=== PATIENT | male | born 1975 | race Hispanic/Latino ===

== ENCOUNTER 2025-03-13 18:00 | Inpatient (IN) | payer OTHER, SELFPAY ==
[2025-03-13] VITALS (11 sets, daily range): BP systolic 104–136; BP diastolic 83–105
--- NOTE | 2025-03-13 16:17 | ED.GENMED ---
History of Present Illness
General
Chief Complaint: Chest Pain
Source: patient
Exam Limitations: none
Time Seen by Provider: 03/13/25 16:01
Nursing documentation reviewed up to this point in time: agreed with
History of Present Illness
History of Present Illness:
49-year-old male with no reported chronic medical issues presents to the ER via EMS for evaluation of chest pain�prehospital STEMI alert called based on EKG. 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 He reports substernal pressure sensation. He denies having had similar symptoms the past. He has had some mild diaphoresis/clamminess. No shortness of breath reported. He denies any known cardiac history. Per EMS on
arrival his vital signs were normal. His prehospital EKG was concerning for anterior lateral ST elevations with inferior depressions. Prehospital STEMI alert was called. He was given 324 mg of aspirin as well as 1 dose of sublingual nitroglycerin
without much improvement in his chest pain.
Review of Systems
Review of Systems
Unable to obtain full review of systems at this time due to: due to acuity
All Other Systems: Not applicable
Phy Exam
Physical Exam
Physical Exam:
General: Awake, alert, oriented x3, somewhat anxious appearing
Head: Normocephalic, atraumatic
Eyes: Conjunctiva normal
Throat: Airway intact, handling secretions
Neck: Trachea midline, no JVD noted
Lungs: Clear to auscultation bilaterally, no wheezing, rales, rhonchi
Heart: Regular rate and rhythm, no murmurs, gallops, or rubs
Neuro: Grossly intact
Skin: Somewhat clammy/diaphoretic
Extremities: No edema in extremities, equal pulses in all extremities
Scores
Heart Failure Risk
Heart Failure Risk Score: Not Applicable
Heart Score for Chest Pain Patients
STEMI patient?: Yes
Withdrawal Assessment of Alcohol
Withdrawal Assessment Completed?: Not applicable
Course
Orders/Labs/Results
Orders:
Orders
03/13/25 16:03
Electrocardiogram (*1) Urgent
Reason for Study: Chest Pain
EKG- Treatment ONCE
IV Insert/Care/Rem.- Treatment PRN
03/13/25 16:04
Complete Blood Count/With Diff Urgent
Comprehensive Metabolic Panel Urgent
Prothrombin Time Urgent
Troponin I Urgent
03/13/25 16:10
Heparin 5,000 units .ROUTE .STK-MED ONE
Ticagrelor [Brilinta] 180 mg .ROUTE .STK-MED ONE
MDM/Problems Addressed
Differential Diagnosis Includes:
STEMI, dissection
MDM/Problems Addressed:
49-year-old male presents for acute onset substernal chest pain�prehospital EKG concerning for STEMI. He received a dose of nitroglycerin prehospital as well as 324 mg of aspirin. Still having active chest pain on arrival. Prehospital STEMI alert
called and case was discussed with interventional cardiology prehospital and patient was met at bedside by myself and cardiology on arrival. Vital signs stable on arrival. His arrival EKG showed continued anterior lateral ST elevations. Patient was
given Brilinta and heparin here in the emergency room and escorted by myself up to Automatic Vulcanizing Lead Operator, care handed off to cardiology.
*Pulse Oximetry
Patient hypoxic: no (98%)
*EKG
Interpreted by ED Provider?: Yes
Heart Rate: 93
Rate: normal
Rhythm: sinus
[place]: normal axis
Interval: normal interval
QRS Pattern: normal QRS
Ischemia: ST elevation
*Critical Care Note
Total Time (30-74mins, 75-104mins- exclusive of procedures): Not Applicable
Data Reviewed
Source: patient and ambulance crew
Patient Management
Discussion with other providers: Payroll Coordinator (Discussed with interventional cardiology)
Escalation/DeEscalation of care consider admission/obs:
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
ED Attending Note
-
Portions of this chart may have been created with voice recognition software.� Occasional wrong word or��sound alike� substitutions may have occurred due to the inherent limitations of voice recognition software.
Discharge Plan
Departure
Patient Disposition: COMMUNICATIONS LEAD
Date of Disposition: 03/13/25
Time of Disposition: 16:16
Admit to doctor: Angel
Presentation/result/management discussed w/ accepting MD/DO: cardiology
Discharge Problem:
ST elevation (STEMI) myocardial infarction
Prescriptions:
No Action
No Current Medications
0
Referrals:
UNKNOWN,NO INTERVIEW [Family Provider]
Discharge Date and Time
Print Language: ARABIC
--- NOTE | 2025-03-13 16:18 | HPS.HSE ---
Family Physician
-
Family Physician: NO INTERVIEW UNKNOWN
Chief Complaint
-
Anterior STEMI
History of Present Illness
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 On arraival to ER he was given Heparin and Brilinta 180mg and brought
urgently to skilled labor, 03/09 on arrival.
Medical History
Past Medical History
Past Medical History: Reports None
Past Surgical History: Reports None
Social History
Tobacco: Non-smoker
Alcohol: Occasional
Personal: Single
Living: With Family (brother)
Family History
Family History: Not pertinent
Allergies / Home Medications
Allergies reflects when Allergies were last updated in [facility].
Home Medications with original date entered in [facility]
Allergy/Medication List:
Allergies
Allergy/AdvReac Type Severity Reaction Status Date / Time
No Known Allergies Allergy Unverified 03/13/25 16:03
�Medication �Instructions �Recorded �Confirmed �Type
No Meds [No Current Medications] 03/13/25 03/13/25 History
Review of Systems
-
Cardiac: Reports Chest Pain (03/09 on arrival to skilled labor)
Physical Exam
Physical Exam
General: Pain (deferred as pt being prepped and draped for urgent procedure)
Data Reviewed
-
Medical Tests (Nuc Med, Echo, EKG etc): Report Reviewed by me
Impression/Plan
-
IMPRESSION:
Acute Anterior STEMI
occluded LAD post PCI LAD x 1
Elevated blood pressure
Elevated glucose
PLAN:
Admit IVU post cath
serial troponin to peak
check ECHO in am
Integrilin drip for 18 hours
DAPT ASA/Brilinta (CM to eval cost)
Check CVE, high intensity statin therapy
initiated low dose BB and ACEi as tolerated
Check A1c with elevated glucose
Cardiac rehab c/s
[2025-03-13 16:25] LABS: Hematocrit 42.4 % (39.0-52.0); Hemoglobin 15.2 g/dL (13.0-18.0); Mean Corp Hgb Conc. 35.8 g/dL (33.0-37.0); Mean Corpuscular Volume 84.5 fL (80.0-94.0); Platelet Count 217 10^3/uL (130-400); Red Cell Dist. Width 13.0 % (11.5-14.5)
[2025-03-13 16:26] LABS: ALT (SGPT) 66 U/L (0-50); AST (SGOT) 36 U/L (17-59); Albumin 4.7 g/dl (3.5-5.0); Alkaline Phosphatase 89 U/L (38-126); Blood Urea Nitrogen 22 mg/dl (9-20); Calcium 9.5 mg/dl (8.4-10.2); Carbon Dioxide 21 mmol/L (22-30); Chloride 106 mmol/L (98-107); Glucose 132 mg/dl (70-99); Potassium 4.0 mmol/L (3.5-5.1); Sodium 139 mmol/L (135-145); Total Protein 8.3 g/dl (6.3-8.2); eGFR > 60.00
[2025-03-13 16:27] LABS: INR 0.92; PT 12.9 Sec (11.4-14.6)
[2025-03-13 16:36] LABS: ACT-LR - POC 285 Seconds (116-155)
[2025-03-13 16:39] LABS: Troponin I 0.025 ng/ml
[2025-03-13 17:00] LABS: Nucleated Red Blood Cells % 0 % (-)
--- NOTE | 2025-03-13 17:03 | ITS.CL.ANGIO ---
Director Instrumentation - Angioplasty
Angioplasty
Procedure Report:
CARDIAC CATHETERIZATION REPORT
Date of Procedure: 03/13/2025
Referring: Jak Salazar Jr., M.D.
INDICATION: Anterior ST elevation myocardial infarction.
PROCEDURE:
1. Left heart catheterization.
2. Coronary angiography.
3. Successful IVUS guided PCI of the proximal LAD.
A total of 39 minutes of procedural/moderate sedation was utilized. An independent medical liaison was present to assist with and help manage the patient's level of consciousness and physiologic status.
ACCESS:
1. 6 British right radial artery using a modified Seldinger technique.
CATHETERS:
1. 5 British JR4.
2. 5 British JL 3.5.
3. 6 British EBU 3.5 guiding catheter.
HEMODYNAMIC DATA
Weight (kg): 66.2
AO (s/d/x, mmHg): 120/90/108
LV (s/x mmHg): 124/14 (A wave to 26)
LEFT VENTRICULOGRAPHY: Not performed.
CORONARY ANGIOGRAPHY
Dominance: Left.
Left Main: Large size, trifurcating vessel. There is no coronary artery disease.
LAD: Large size vessel giving rise to 1 large diagonal. The vessel is acutely, thrombotically occluded in its proximal margin.
Ramus: Large size vessel supplying the majority of the lateral wall. There are luminal irregularities in the proximal vessel.
Circumflex: Large size, dominant vessel giving rise to a small obtuse marginal followed by a left posterolateral branch then terminating as an LPDA. There is no coronary artery disease.
RCA: Small size, nondominant vessel. There is no coronary artery disease
INTERVENTION(S)
1. Successful IVUS guided PCI of the thrombotic, 100% proximal LAD occlusion (Medtronic Register Cloud 3.5 x 30 ROMMEL, postdilated with a 3.5 NC balloon) with reduction in stenosis to 0%, restoring TIFFANIE-3 flow.
Narrative:
The decision was made to proceed with percutaneous coronary intervention. The diagnostic catheter was removed over a wire and a 6Fr EBU 3.5 guiding catheter was advanced to the aortic root and seated in the left main coronary artery. Additional
heparin was given and a Power Turn Flex wire was advanced into the distal LAD. The acute, thrombotic 100% proximal LAD lesion was predilated with a 2.0 x 12 semi-compliant balloon to 12 chichi restoring TIFFANIE-3 flow. [place] of TIFFANIE-3 flow revealed
the presence of a large diagonal immediately distal to the culprit lesion. A BMW wire was advanced into the proximal LAD and then deployed in the diagonal for protection.
The decision was made to perform intracoronary imaging. An IVUS catheter was advanced through the guiding catheter and into the ostium of the artery. Ring down was performed once the imaging crystal was no longer inside of the guiding catheter. The
IVUS catheter was advanced into the mid LAD. Intravascular ultrasound was performed in a retrograde fashion using a slow pullback. Intracoronary imaging demonstrated significant plaque burden within the entire proximal LAD leading back essentially
to the ostium of the LAD with normalization of the lumen area. Vessel measurements were obtained. Given the plaque extending back to the ostium of the LAD and concern for intrusion of the stent into the left main coronary artery, a Hi-Torque
floppy wire was advanced into the ramus for protection and to serve as a guide post.
The IVUS catheter was removed and a Medtronic Register Cloud 3.5 x 30 drug-eluting stent was advanced. Meticulous care was taken while positioning the stent, ensuring that the distal aspect of the stent cover the entire lesion while the proximal
edge of the stent also cover the proximal lesion without extending into the left main coronary artery. When we were satisfied with our position, the stent was deployed at 12 atmospheres. The stent balloon was removed. A 3.5 x 20 noncompliant
balloon was advanced into the stent and the stent was postdilated to 12 atmospheres in the distal margin and 14 chichi in the proximal margin.
After confirming no significant plaque shift into the ramus or circumflex, the Hi-Torque floppy wire was redirected into the LAD then through the stent struts and into the large diagonal, demonstrating that the diagonal was accessible
percutaneously. The BMW wire was withdrawn. Final IVUS was performed demonstrating good stent apposition and expansion in all dimensions. IVUS also demonstrated that the proximal edge of the stent remained within the LAD and did not enter the
left main coronary artery.
The IVUS catheter was withdrawn. Angiography was performed in orthogonal views, confirming good stent expansion and an excellent angiographic result. The coronary wire was withdrawn and the guide was disengaged from the artery. The catheter was
removed over a standard J-wire.
Closure Device: Vascular band.
Radiation (mGy): 475.52
DAP (cm2.Gy): 40.4244
Fluoroscopy time (minutes): 9.4
CONCLUSIONS
1. Left dominant circulation with luminal irregularities in the large ramus and an acute, thrombotic, 100% lesion of the proximal LAD, status post successful IVUS guided PCI (Medtronic Register Cloud 3.5 x 30 ROMMEL, postdilated with a 3.5 NC balloon)
with reduction in stenosis to 0%, restoring TIFFANIE-3 flow.
2. Mildly elevated filling pressures (LVEDP = 14 mmHg at 66.2 kg) with evidence of diastolic dysfunction (A wave to 26 mmHg).
RECOMMENDATIONS:
1. Expectant management after cardiac catheterization via right radial approach.
2. Limited weight bearing on the right wrist for one week.
3. Dual antiplatelet therapy with aspirin and ticagrelor for at least 12 months, followed by aspirin indefinitely.
4. Aggressive secondary prevention with high-dose, high potency statin. Goal LDL <55.
5. OMT/GDMT as hemodynamics will tolerate.
6. Echocardiogram ordered and pending.
7. Referral to cardiac rehab.
Copy to: Dez Ortiz D.O., Jak Salazar Jr., M.D.
Dez Ortiz DO, FACC, FACP
--- NOTE | 2025-03-13 17:55 | PTCARENOTE ---
Rec'd pt from manager cardiac cath. Pt w/ R radial hemostasis band on. No bleeding/hematoma noted. Activity restrictions reviewed w/ pt. Pt c/o residual CP 11/07 and Angel STERN at bedside. No new orders placed. Post EKG obtained- pt w/ wide QRS rhythm and
reviewed by Angel STERN at bedside. Oriented pt to room. Integrillin gtt infusing at 11ml/hr. Currently in bed; call buddy w/in reach.
[2025-03-13] MEDS: COZAAR 25 MG PO (18:12)
[2025-03-13] MEDS: LIPITOR 80 MG PO (18:12)
--- NOTE | 2025-03-13 19:55 | PTCARENOTE ---
Addendum entered by Amy Gamble RN 03/14/25 07:14:
Integrillin gtt infusing at 11ml/hr, infusion completed at 0125 am.
Original Note:
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 Tylenol given with some relief. Bp stable. SR/ST on the tele monitor. 80-110's. R radial site CDI, no bleeding
or hematoma noted. EKG with Stemi alert this morning, results TT to CTPA, Troponin sent with morning labs, Jessa 5mg given with +effect. Call goodwin within reach.
[2025-03-13 23:39] LABS: Troponin I 168.000 ng/ml
[2025-03-14] MEDS: TYLENOL 650 MG PO (01:10)
[2025-03-14 03:28] VITALS: BP 124/96
[2025-03-14] MEDS: ROXICODONE 5 MG PO (04:14)
[2025-03-14 04:23] LABS: Hematocrit 41.0 % (39.0-52.0); Hemoglobin 14.5 g/dL (13.0-18.0); Mean Corp Hgb Conc. 35.4 g/dL (33.0-37.0); Mean Corpuscular Volume 85.1 fL (80.0-94.0); Platelet Count 193 10^3/uL (130-400); Red Cell Dist. Width 13.1 % (11.5-14.5)
[2025-03-14 04:47] LABS: Blood Urea Nitrogen 15 mg/dl (9-20); Calcium 8.8 mg/dl (8.4-10.2); Carbon Dioxide 21 mmol/L (22-30); Chloride 107 mmol/L (98-107); Glucose 127 mg/dl (70-99); HDL Cholesterol 34 mg/dl; Potassium 4.3 mmol/L (3.5-5.1); Sodium 135 mmol/L (135-145); eGFR > 60.00
[2025-03-14 05:01] LABS: Troponin I 72.700 ng/ml
[2025-03-14 05:24] LABS: LDL Cholesterol, Direct 44 mg/dl
[2025-03-14 06:00] VITALS: BMI 25.4
--- NOTE | 2025-03-14 07:39 | W.PN.CD ---
Today's Communication / Plan
-
Routine post STEMI management.
Echocardiogram pending.
Beta keila.
Statin.
Icosapent ethyl 2g BID at discharge. Case management consult.
Impression / Plan
-
Impression/Plan: 49 y/o male without significant past medical history admitted with anterior STEMI.
#CAD/Anterior STEMI
-Acute, threat to life.
-S/P IVUS guided PCI to the proximal LAD occlusion extending into the mLAD (Medtronic Thomas Arenac 3.5 x 30 ROMMEL, post dilated with a 3.5 NCB) with reduction in stenosis to 0%, restoring TIFFANIE III flow.
-Troponin peaked at 168.
-DAPT with aspirin and ticagrelor for at least 12 months, followed by aspirin indefinitely. Complete eptifibatide infusion.
-High dose, high potency statin.
-Start metoprolol succinate 25 mg daily.
-Echocardiogram pending.
-Referral to cardiac rehab.
#Hypertriglyceridemia
-New diagnosis.
-Total cholesterol = 307, LDL = 44, HDL = 34, Triglycerides = 1289 (!).
-Start atorvastatin 80 mg daily.
-The patient will NEED aggressive triglyceride control. Start icosapent ethyl 2g BID at discharge (not on formulary). Case management consult.
-Check HbA1c.
#PPx
-SCD's for DVT/VTE.
-No role for PPI.
#Dispo
-IVU status.
-Full code.
Subjective/Interval History:
Presented with anterior STEMI yesterday.
IVUS guided PCI to the proximal/mid LAD, restoring TIFFANIE III flow.
DATA:
Cardiac Catheterization/PCI, 03/13/2025:
CONCLUSIONS
1. Left dominant circulation with luminal irregularities in the large ramus and an acute, thrombotic, 100% lesion of the proximal LAD, status post successful IVUS guided PCI (Medtronic Thomas Arenac 3.5 x 30 ROMMEL, postdilated with a 3.5 NC balloon)
with reduction in stenosis to 0%, restoring TIFFANIE-3 flow.
2. Mildly elevated filling pressures (LVEDP = 14 mmHg at 66.2 kg) with evidence of diastolic dysfunction (A wave to 26 mmHg).
Physical Exam
Vital Signs/Labs
Vital Signs
Temp Pulse Resp BP Pulse Ox
36.8 C 100 20 124/96 96
03/14/25 03:41 03/14/25 05:15 03/14/25 03:41 03/14/25 03:28 03/14/25 05:15
03/12/25 03/13/25 03/14/25
11:59 11:59 11:59
Actual Weight 65 kg
03/14/25 04:09
03/14/25 04:09
PT 12.9 Sec (11.4-14.6) 03/13/25 16:04
INR 0.92 03/13/25 16:04
Triglycerides 1289 mg/dl (10-149) H 03/14/25 04:09
LDL Cholesterol, Calc mg/dl 03/14/25 04:09
VLDL Cholesterol, Calc mg/dl (0-30) 03/14/25 04:09
HDL Cholesterol 34 mg/dl 03/14/25 04:09
LAB Results
03/13/25 03/13/25 03/13/25
16:04 22:24 22:54
Troponin I 0.025 Cancelled 168.000 H* D
03/14/25
04:09
Troponin I 72.700 H* D
Physical Exam
Constitutional: No acute distress and Comfortable
EENT: Anicteric and Moist mucous membranes
Cardiovascular: Rhythm & rate is regular, Pedal edema is absent, JVD pressure is normal, S1S2 is normal and Murmur/rub/gallop absent
Respiratory: Respiratory effort normal, Lungs clear to auscul., Wheeze Absent, Crackles Absent and Rhonchi Absent
GI: Soft, Distention absent, Flat, Non tender and Normal bowel sounds
Neuro/Psych: AO x 3
Other: Cath Site (Right radial access site is C/D/I.)
Data Reviewed
-
Date of Service: March 14, 2025
Medical Decision Making: Reviewed Test Results, Independent Historian Assessment and Test Interpretation
EKG: Tracing Personally Visualized and interpreted and Report Reviewed by me
X-Ray/CT/US/MRI/NUC/PET: Image Personally Visualized and interpreted and Report Reviewed by me
Medical Tests (PFT, Pathology etc): Image Personally Visualized and interpreted, Report Reviewed by me, Discussed with Patient and Discussed with Family
Labs: Labs Reviewed by me
[2025-03-14 07:54] VITALS: BP 118/85
[2025-03-14] MEDS: TOPROL XL 25 MG PO (07:55)
[2025-03-14] MEDS: COZAAR 25 MG PO (07:55)
[2025-03-14] MEDS: LOW STRENGTH ASPIRIN 81 MG PO (07:55)
[2025-03-14] MEDS: BRILINTA 90 MG PO (07:55)
--- NOTE | 2025-03-14 09:22 | CARDSERVLU ---
Echocardiogram with Lumason completed after protocol screening completed. Allergies verified.
Patent IV site: __Rt AC___
IV site flushed with 0.9% NaCl pre and post administration.
Diluted bolus method utilized to enhance visualization of ventricular benz.
Total volume given: _3.0__ mL
Patient tolerated all procedures well without complications.
[2025-03-14 09:25] LABS: Glycohemoglobin (HgbA1c) 5.6 % (4.0-5.6)
[2025-03-14 12:22] VITALS: BP 111/82
--- NOTE | 2025-03-14 12:43 | CM ---
Addendum entered by Zandra Davidson RN 03/14/25 15:01:
Vascepa is $23 at [facility].
Original Note:
Chart reviewed. Patient is Malawian speaking, speaks and understands some Malay. Patient is independent of ADLS, lives with his brother in a apartment, 0 GEOVANNY, 0 DME. Patient does not have health insurance, [facility]. Plan is for the
patient to return home when medically stable. CM to follow
Pricing on Vascepa through [facility] is $100 a month through [facility]. Patient being placed on Plavix.
[2025-03-14] MEDS: TRICOR 145 MG PO (13:25)
[2025-03-14 15:05] VITALS: BP 99/75
--- NOTE | 2025-03-14 17:41 | PTCARENOTE ---
Pt remains SR on tele. Assessment completed as documented. R radial site is c/d/i. No bleeding/hematoma noted. Pt ambulatory in room w/ steady gait. No complaints CP/discomfort. Plan of care reviewed w/ pt and verbalizes understanding.
[2025-03-14] MEDS: LIPITOR 80 MG PO (17:53)
[2025-03-14 19:01] VITALS: BP 102/76
[2025-03-14 22:38] VITALS: BP 105/79
--- NOTE | 2025-03-14 23:00 | PTCARENOTE ---
Received pt at change of shift resting in bed. SR on tele, HR in the 90's. pt denies any CP or SOB. 4 attempts made by numerous staff nurse midwife to collect Q8 trop, hemolyzed all 4x. Reached out to Dr. Tamayo, informed RN okay to D/C since trops peaked
already. Right radial site C.D.I. No bleeding or hematoma noted at this time. Positive pulses. Encouraged pt to call RN with any questions/concerns. Call goodwin within reach.
[2025-03-15 02:02] VITALS: BP 93/76
[2025-03-15 02:11] VITALS: BMI 24.8
[2025-03-15 02:37] LABS: Hematocrit 42.3 % (39.0-52.0); Hemoglobin 15.2 g/dL (13.0-18.0); Mean Corp Hgb Conc. 35.9 g/dL (33.0-37.0); Mean Corpuscular Volume 83.3 fL (80.0-94.0); Platelet Count 207 10^3/uL (130-400); Red Cell Dist. Width 13.2 % (11.5-14.5)
[2025-03-15 03:19] LABS: Blood Urea Nitrogen 15 mg/dl (9-20); Calcium 9.5 mg/dl (8.4-10.2); Carbon Dioxide 22 mmol/L (22-30); Chloride 107 mmol/L (98-107); Estimated Creatinine Clearance 104 ml/min; Glucose 107 mg/dl (70-99); Potassium 4.4 mmol/L (3.5-5.1); Sodium 138 mmol/L (135-145); eGFR > 60.00
[2025-03-15 07:49] VITALS: BP 87/71
[2025-03-15 07:52] VITALS: BP 93/67
[2025-03-15] MEDS: TRICOR 145 MG PO (08:13)
[2025-03-15] MEDS: LOW STRENGTH ASPIRIN 81 MG PO (08:14)
[2025-03-15] MEDS: PLAVIX 600 MG PO (08:14)
[2025-03-15] MEDS: COZAAR PO (08:16)
--- NOTE | 2025-03-15 08:41 | PTCARENOTE ---
Pt's BP 93/67, Pt's Cozaar and Toprol not given, will notify import coordination and production head. HR [address] on truer pinion and wheel. Pt is otherwise asymptomatic with low BP.
--- NOTE | 2025-03-15 11:12 | W.PN.CD ---
Addendum entered and electronically signed by Errol Tamayo MD 03/15/25 13:08:
Patient seen and examined in collaboration with CONDUIT WORKER; agree with below.
- No major events overnight; significant anterior STEMI, EF 30-35% with anterior/anteroseptal/apical akinesis.
-Fairly compensated on examination.
- Continue aspirin/Plavix.
- Unable to tolerate losartan at this time due to low blood pressure.
- Will give Toprol-XL today; persistent sinus tachycardia on telemetry to 120s.
- Continue to monitor closely over the weekend.
Original Note:
Today's Communication / Plan
-
Continue ASA and Plavix, as well as statin
Monitor BP and telemetry
GDMT as able- currently limited by BP, currently on BB/ARB
Impression / Plan
-
Impression/Plan: 49 y/o male without significant past medical history admitted with anterior STEMI.
#CAD/Anterior STEMI
-Acute, threat to life.
-S/P IVUS guided PCI to the proximal LAD occlusion extending into the mLAD (Medtronic Thomas Rainelle 3.5 x 30 ROMMEL, post dilated with a 3.5 NCB) with reduction in stenosis to 0%, restoring TIFFANIE III flow, 03/13/25, Dr. Ortiz.
-Troponin peaked at 168.
-DAPT with aspirin and clopidogrel
-High dose, high potency statin.
-metoprolol initiated
-Echocardiogram 03/14/25: Severely reduced left ventricular systolic function. LVEF 30-35%. Multiple left ventricular segmental wall motion abnormalities are noted, as described below (primarily anterior/anteroseptal/apical akinesis). Right
ventricular size and systolic function are within normal limits. Mild to moderate tricuspid regurgitation. Estimated pulmonary artery pressure of 25 mmHg, assuming a right atrial pressure of 3 mmHg.
-Referral to cardiac rehab placed
-one 6 beat run NSVT last night, SR/ST since- follow telemetry
ICM EF 30-35%:
-GDMT as able- currently on ARB and BB, which we will continue as tolerated, but BP currently on low end. ARB held this AM, but I asked nursing to please give the metoprolol.
-meds are limited by BP, also lack of insurance can be barrier to some of the typical GDMT medications
-not volume overloaded to assessment
#Hypertriglyceridemia
-New diagnosis.
-Total cholesterol = 307, LDL = 44, HDL = 34, Triglycerides = 1289 (!).
-now on atorvastatin 80 mg daily.
-The patient will NEED aggressive triglyceride control. Start icosapent ethyl 2g BID at discharge (not on formulary). Case management consult appreciated.
-hgbA1C is 5.6
#PPx
-SCD's for DVT/VTE.
-No role for PPI.
Subjective/Interval History:
I used the finish remover IPAD to effectively communicate with patient, as he is primarily Sami speaking. He denies any CP, SOB, dizziness, or palpitations. Brother is at bedside. Right radial cath site is stable without hematoma.
DATA:
Cardiac Catheterization/PCI, 03/13/2025:
CONCLUSIONS
1. Left dominant circulation with luminal irregularities in the large ramus and an acute, thrombotic, 100% lesion of the proximal LAD, status post successful IVUS guided PCI (Medtronic [place] Rainelle 3.5 x 30 ROMMEL, postdilated with a 3.5 NC balloon)
with reduction in stenosis to 0%, restoring TIFFANIE-3 flow.
2. Mildly elevated filling pressures (LVEDP = 14 mmHg at 66.2 kg) with evidence of diastolic dysfunction (A wave to 26 mmHg).
Physical Exam
Vital Signs/Labs
Vital Signs
Temp Pulse Resp BP Pulse Ox
98.7 F 113 16 93/67 95
03/15/25 07:51 03/15/25 08:00 03/15/25 07:51 03/15/25 08:16 03/15/25 08:48
03/14/25 03/15/25 03/16/25
06:59 06:59 06:59
Actual Weight 65 kg 63.4 kg
03/15/25 02:10
03/15/25 02:10
PT 12.9 Sec (11.4-14.6) 03/13/25 16:04
INR 0.92 03/13/25 16:04
Triglycerides 1289 mg/dl (10-149) H 03/14/25 04:09
LDL Cholesterol, Calc mg/dl 03/14/25 04:09
VLDL Cholesterol, Calc mg/dl (0-30) 03/14/25 04:09
HDL Cholesterol 34 mg/dl 03/14/25 04:09
LAB Results
03/13/25 03/13/25 03/13/25
16:04 22:24 22:54
Troponin I 0.025 Cancelled 168.000 H* D
03/14/25 03/14/25 03/14/25
04:09 18:02 19:09
Troponin I 72.700 H* D Cancelled Cancelled
03/14/25 03/14/25 03/14/25
20:21 20:51 21:31
Troponin I Cancelled Cancelled Cancelled
Physical Exam
Constitutional: No acute distress
EENT: Anicteric
Cardiovascular: Rhythm & rate is regular and Pedal edema is absent
Respiratory: Respiratory effort normal and Lungs clear to auscul.
GI: Soft, Non tender and Normal bowel sounds
Neuro/Psych: AO x 3
Other: Cath Site (right radial cath site stable no hematoma)
Data Reviewed
-
Date of Service: March 15, 2025
EKG: Other (SR/ST, one 6 beat run NSVT last night)
Medical Tests (PFT, Pathology etc): Report Reviewed by me (echo report reviewed)
Labs: Labs Reviewed by me
[2025-03-15 11:28] VITALS: BP 110/82
[2025-03-15] MEDS: TOPROL XL 25 MG PO (11:29)
[2025-03-15 15:36] VITALS: BP 94/67
[2025-03-15] MEDS: LIPITOR 80 MG PO (18:20)
[2025-03-15 19:49] VITALS: BP 103/76
--- NOTE | 2025-03-15 21:58 | PTCARENOTE ---
Received pt at change of shift resting in bed. SR-ST on tele, HR 90-100's. pt denies any CP or SOB. Right radial site intact and SHAYAN. No bleeding or hematoma noted at this time. Encouraged pt to call RN with any questions/concerns. Call goodwin within
reach.
[2025-03-16] VITALS (10 sets, daily range): BP systolic 90–104; BP diastolic 69–81; BMI 25.3
[2025-03-16 04:41] LABS: Hematocrit 40.8 % (39.0-52.0); Hemoglobin 14.1 g/dL (13.0-18.0); Mean Corp Hgb Conc. 34.6 g/dL (33.0-37.0); Mean Corpuscular Volume 86.3 fL (80.0-94.0); Platelet Count 191 10^3/uL (130-400); Red Cell Dist. Width 13.2 % (11.5-14.5)
[2025-03-16 05:01] LABS: Blood Urea Nitrogen 25 mg/dl (9-20); Calcium 9.2 mg/dl (8.4-10.2); Carbon Dioxide 22 mmol/L (22-30); Chloride 108 mmol/L (98-107); Estimated Creatinine Clearance 81 ml/min; Glucose 111 mg/dl (70-99); Potassium 4.6 mmol/L (3.5-5.1); Sodium 137 mmol/L (135-145); eGFR > 60.00
[2025-03-16] MEDS: TRICOR 145 MG PO (08:05)
[2025-03-16] MEDS: PLAVIX 75 MG PO (08:05)
[2025-03-16] MEDS: LOW STRENGTH ASPIRIN 81 MG PO (08:06)
[2025-03-16] MEDS: COZAAR PO (08:12)
--- NOTE | 2025-03-16 09:49 | PTCARENOTE ---
Pt's BP 90/69, Pt's Cozaar and Toprol not given, Dr Tamayo then discontinued Cozaar. Will attempt to give toprol later if BP improves. Pt is asymptomatic with low BP.
--- NOTE | 2025-03-16 10:17 | W.PN.CD ---
Today's Communication / Plan
-
- Continue DAPT with aspirin and clopidogrel.
- Continue atorvastatin 80 mg daily.
- Continue metoprolol succinate 25 mg daily; unable to increase secondary to blood pressure limitations--persistent sinus tachycardia at 100-120 bpm.
- Losartan discontinued secondary to blood pressure limitations.
- Discharge to home tomorrow.
Impression / Plan
-
Impression/Plan: 49 y/o male without significant past medical history admitted with anterior STEMI.
#CAD/Anterior STEMI
-Acute, threat to life.
-S/P IVUS guided PCI to the proximal LAD occlusion extending into the mLAD ([employer] [place] 3.5 x 30 ROMMEL, post dilated with a 3.5 NCB) with reduction in stenosis to 0%, restoring TIFFANIE III flow, 03/13/25, Dr. Ortiz.
-Troponin peaked at 168.
- Continue DAPT with aspirin and clopidogrel.
- Continue atorvastatin 80 mg daily.
- Continue metoprolol succinate 25 mg daily; unable to increase secondary to blood pressure limitations--persistent sinus tachycardia at 100-120 bpm.
-Echocardiogram 03/14/25: Severely reduced left ventricular systolic function. LVEF 30-35%. Multiple left ventricular segmental wall motion abnormalities are noted, as described below (primarily anterior/anteroseptal/apical akinesis). Right
ventricular size and systolic function are within normal limits. Mild to moderate tricuspid regurgitation. Estimated pulmonary artery pressure of 25 mmHg, assuming a right atrial pressure of 3 mmHg.
-Referral to cardiac rehab placed
-one 6 beat run NSVT last night, SR/ST since- follow telemetry
Acute ICM/HFrEF (30-35%):
-GDMT as able- currently on ARB and BB, which we will continue as tolerated, but BP currently on low end.
- Losartan discontinued secondary to blood pressure limitations.
-meds are limited by BP, also lack of insurance can be barrier to some of the typical GDMT medications
- Compensated on examination.
#Hypertriglyceridemia
-New diagnosis.
-Total cholesterol = 307, LDL = 44, HDL = 34, Triglycerides = 1289 (!).
-now on atorvastatin 80 mg daily.
-The patient will NEED aggressive triglyceride control. Start icosapent ethyl 2g BID at discharge (not on formulary). Case management consult appreciated.
-hgbA1C is 5.6
#PPx
-SCD's for DVT/VTE.
-No role for PPI.
Subjective/Interval History:
No major events overnight. No cardiac complaints this a.m.
DATA:
Cardiac Catheterization/PCI, 03/13/2025:
CONCLUSIONS
1. Left dominant circulation with luminal irregularities in the large ramus and an acute, thrombotic, 100% lesion of the proximal LAD, status post successful IVUS guided PCI ([employer]onic [place] 3.5 x 30 ROMMEL, postdilated with a 3.5 NC balloon)
with reduction in stenosis to 0%, restoring TIFFANIE-3 flow.
2. Mildly elevated filling pressures (LVEDP = 14 mmHg at 66.2 kg) with evidence of diastolic dysfunction (A wave to 26 mmHg).
Physical Exam
Vital Signs/Labs
Vital Signs
Temp Pulse Resp BP Pulse Ox
98.2 F 113 20 90/69 90
03/16/25 07:25 03/16/25 08:15 03/16/25 07:25 03/16/25 08:12 03/16/25 07:25
03/15/25 03/16/25 03/17/25
06:59 06:59 06:59
Actual Weight 63.4 kg 64.7 kg
03/16/25 04:27
03/16/25 04:27
PT 12.9 Sec (11.4-14.6) 03/13/25 16:04
INR 0.92 03/13/25 16:04
Triglycerides 1289 mg/dl (10-149) H 03/14/25 04:09
LDL Cholesterol, Calc mg/dl 03/14/25 04:09
VLDL Cholesterol, Calc mg/dl (0-30) 03/14/25 04:09
HDL Cholesterol 34 mg/dl 03/14/25 04:09
LAB Results
03/13/25 03/13/25 03/13/25
16:04 22:24 22:54
Troponin I 0.025 Cancelled 168.000 H* D
03/14/25 03/14/25 03/14/25
04:09 18:02 19:09
Troponin I 72.700 H* D Cancelled Cancelled
03/14/25 03/14/25 03/14/25
20:21 20:51 21:31
Troponin I Cancelled Cancelled Cancelled
Physical Exam
Constitutional: No acute distress and Comfortable
EENT: Anicteric
Cardiovascular: Rhythm & rate is regular, Pedal edema is absent, Systolic murmur absent and S1S2 is normal
Respiratory: Respiratory effort normal and Lungs clear to auscul.
GI: Soft
Neuro/Psych: AO x 3
Other: Skin (Warm, dry, intact)
Data Reviewed
-
Date of Service: March 16, 2025
EKG: Tracing Personally Visualized and interpreted (Telemetry: Sinus rhythm at 100-120 bpm)
Echo: Tracing Personally Visualized and interpreted (EF 30-35%)
Medical Tests (PFT, Pathology etc): Discussed with Patient
Labs: Labs Reviewed by me
[2025-03-16] MEDS: TOPROL XL PO (13:36)
--- NOTE | 2025-03-16 13:53 | PTCARENOTE ---
Pt BP 93/72, did not give Toprol today, Dr Tamayo aware.
[2025-03-16] MEDS: LIPITOR 80 MG PO (18:30)
--- NOTE | 2025-03-16 20:36 | PTCARENOTE ---
Assumed care on pt at 1900, aaox3, denies c/o cp, SOB, dizziness. SR/ST on the tele monitor, HR 90-100's. Call goodwin within reach.
[2025-03-17] VITALS (9 sets, daily range): BP systolic 82–100; BP diastolic 65–77; BMI 25.2
--- NOTE | 2025-03-17 05:01 | PTCARENOTE ---
Pt hypotensive this morning, bp 84/66, 90. Denies c/o dizziness or lightheadedness, no cp or sob. 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
[2025-03-17 07:59] LABS: ACT-LR - POC > 397 Seconds (116-155)
[2025-03-17] MEDS: TRICOR 145 MG PO (08:00)
[2025-03-17] MEDS: LOW STRENGTH ASPIRIN 81 MG PO (08:00)
[2025-03-17] MEDS: PLAVIX 75 MG PO (08:00)
[2025-03-17] MEDS: TOPROL XL PO (10:16)
--- NOTE | 2025-03-17 10:36 | W.PN.CD ---
Today's Communication / Plan
-
BP responded to fluid bolus.
Give metoprolol to 12.5 mg now.
Repeat echocardiogram in 3 months.
Icosapent ethyl 2g BID as an outpatient.
If BP is stable this afternoon, we can consider discharge.
Impression / Plan
-
Impression/Plan: 49 y/o male without significant past medical history admitted with anterior STEMI.
#CAD/Anterior STEMI
-Acute, threat to life.
-S/P IVUS guided PCI to the proximal LAD occlusion extending into the mLAD ([employer] [place] 3.5 x 30 ROMMEL, post dilated with a 3.5 NCB) with reduction in stenosis to 0%, restoring TIFFANIE III flow, 03/13/25, Dr. Ortiz.
-Troponin peaked at 168.
-Continue DAPT with aspirin and clopidogrel for at least 12 months, followed by aspirin indefinitely.
-Continue atorvastatin 80 mg daily.
-LVEF 30-35%. Multiple left ventricular segmental wall motion abnormalities are noted.
-Referral to cardiac rehab placed
-BP limits use of OMT/GDMT. Metoprolol held for BP of 84/66 mmHg.
-BP responded to LR bolus.
-Give metoprolol succinate 12.5 mg now and monitor response. If BP is stable in afternoon, we can consider discharge.
#ICM (30-35%)
-Acute, related to STEMI.
-GDMT limited by BP/cost:
-Diuretics: None.
-Beta keila: Reduce metoprolol succinate to 12.5 mg daily due to BP. First dose now and monitor BP response.
-ACEI/ARB/ARNi: None due to BP, cost.
-MRA: None due to BP.
-SGLT2i: None due to cost.
-ICD: Not yet indicated. Repeat echocardiogram in 3 months.
#Hypertriglyceridemia
-New diagnosis.
-Total cholesterol = 307, LDL = 44, HDL = 34, Triglycerides = 1289 (!).
-Atorvastatin 80 mg daily.
-The patient will NEED aggressive triglyceride control. Start icosapent ethyl 2g BID at discharge (not on formulary). Case management consult appreciated.
-HbA1C is 5.6%.
#PPx
-SCD's for DVT/VTE.
-No role for PPI.
#Dispo
-IVU status.
-Full code.
-Discharge.
Subjective/Interval History:
Mild hypotension this morning. Metoprolol held. BP responded well to LR 250 mL.
Complained of mild, right sided chest pain x 10 minutes this morning, now resolved.
DATA:
Cardiac Catheterization/PCI, 03/13/2025:
CONCLUSIONS
1. Left dominant circulation with luminal irregularities in the large ramus and an acute, thrombotic, 100% lesion of the proximal LAD, status post successful IVUS guided PCI ([employer]tronic [place] 3.5 x 30 ROMMEL, postdilated with a 3.5 NC balloon)
with reduction in stenosis to 0%, restoring TIFFANIE-3 flow.
2. Mildly elevated filling pressures (LVEDP = 14 mmHg at 66.2 kg) with evidence of diastolic dysfunction (A wave to 26 mmHg).
Transthoracic Echocardiogram, 03/14/2025:
SUMMARY
1. Severely reduced left ventricular sytolic function. LVEF 30-35%. Multiple left ventricular segmental wall motion abnormalities are noted, as described below (primarliy anterior/anteroseptal/apical akinesis).
2. Right ventricular size and systolic function are within normal limits.
3. Mild to moderate tricuspid regurgitation. Estimated pulmonary artery pressure of 25 mmHg, assuming a right atrial pressure of 3 mmHg.
4. There are no prior studies available for comparison.
Physical Exam
Vital Signs/Labs
Vital Signs
Temp Pulse Resp BP Pulse Ox
37.0 C 95 16 86/66 98
03/17/25 09:08 03/17/25 09:08 03/17/25 09:08 03/17/25 09:08 03/17/25 09:08
03/15/25 03/16/25 03/17/25
11:59 11:59 11:59
Actual Weight 63.4 kg 64.7 kg 64.5 kg
03/16/25 04:27
03/16/25 04:27
PT 12.9 Sec (11.4-14.6) 03/13/25 16:04
INR 0.92 03/13/25 16:04
Triglycerides 1289 mg/dl (10-149) H 03/14/25 04:09
LDL Cholesterol, Calc mg/dl 03/14/25 04:09
VLDL Cholesterol, Calc mg/dl (0-30) 03/14/25 04:09
HDL Cholesterol 34 mg/dl 03/14/25 04:09
LAB Results
03/14/25 03/14/25 03/14/25
18:02 19:09 20:21
Troponin I Cancelled Cancelled Cancelled
03/14/25 03/14/25
20:51 21:31
Troponin I Cancelled Cancelled
Physical Exam
Constitutional: No acute distress and Comfortable
EENT: Anicteric and Moist mucous membranes
Cardiovascular: Rhythm & rate is regular, Pedal edema is absent, JVD pressure is normal, S1S2 is normal and Murmur/rub/gallop absent
Respiratory: Respiratory effort normal, Lungs clear to auscul., Wheeze Absent, Crackles Absent and Rhonchi Absent
GI: Soft, Distention absent, Flat, Non tender and Normal bowel sounds
Neuro/Psych: AO x 3
Other: Cath Site (Right radial access site is C/D/I.)
Data Reviewed
-
Date of Service: March 17, 2025
Medical Decision Making: Reviewed Test Results, Independent Historian Assessment and Test Interpretation
EKG: Tracing Personally Visualized and interpreted and Report Reviewed by me
Echo: Tracing Personally Visualized and interpreted and Report Reviewed by me
X-Ray/CT/US/MRI/NUC/PET: Image Personally Visualized and interpreted and Report Reviewed by me
Medical Tests (PFT, Pathology etc): Image Personally Visualized and interpreted, Report Reviewed by me, Discussed with Patient and Discussed with Family
Labs: Labs Reviewed by me
[2025-03-17] MEDS: LACTATED RINGERS 250 IV (11:06)
--- NOTE | 2025-03-17 11:24 | PTCARENOTE ---
BP 89/73. Pt has no complaints dizziness/lightheadedness. Angel STERN aware. 250 cc bolus LR ordered and administered.
--- NOTE | 2025-03-17 11:47 | PTCARENOTE ---
During rounds, pt told this RN that he had CP about 1 hour ago that lasted 10 min duration rating 2/10. This RN enforced to call nurse if having pain. Pt verbalizes understanding. EKG obtained and Angel STERN aware.
[2025-03-17] MEDS: TOPROL XL 12.5 MG PO (13:08)
--- NOTE | 2025-03-17 16:24 | W.DS.TRANS ---
DC Summary - Record Changer
-
Discharge Instructions:
Discharge Diagnosis/Procedures Anterior STEMI
Procedure: Angioplasty with stent to LAD
2024
Ischemic cardiomyopathy
Hypertriglyceridemia
Diet Low Cholesterol,2 Gram Sodium
Activity No strenuous activity
Additional Activity See attached instructions.
Driving Restrictions No driving for 24 hours
Bathing Restrictions OK to Shower
Other Services Cardiac Rehab
Specialty Instructions Weigh Daily
Instructions:
Stand-Alone Forms: DC Instructions- Cath/EP Lab
Changes to Home Medications: Yes
Discharge Medications:
DC Medications w/original date entered in [employer]
acetaminophen 325 mg tablet 650 mg (2 x 325 mg) PO Q4HPRN PRN mild pain #30 tabs 03/17/25
aspirin 81 mg tablet 81 mg PO DAILY #90 tabs 03/17/25
atorvastatin 80 mg tablet 80 mg PO QPM #30 tabs 03/17/25
clopidogrel 75 mg tablet 75 mg PO DAILY 30 days #30 tabs 03/17/25
fenofibrate nanocrystallized 145 mg tablet 145 mg PO DAILY #30 tabs 03/17/25
icosapent ethyl 1 gram capsule (Vascepa) 1 g PO BID #60 caps 03/17/25
metoprolol succinate 25 mg tablet,extended release 24 hr 12.5 mg (1/2 x 25 mg) PO DAILY #15 tabs 03/17/25
Home Medication Changes
All medications are new.
Pending Results: No
[2025-03-17] MEDS: LIPITOR 80 MG PO (17:15)
--- NOTE | 2025-03-17 18:44 | PTCARENOTE ---
Discharge instructions reviewed w/ pt via language line in Ecuadorean. Pt verbalizes understanding. IV and tele removed. Belongings collected and sent home w/ pt. Escorted via WC and staff assist to home.
== END 2025-03-17 18:45 | disposition home or self-care (01) | DRG 322 ==
LOC: IVU 18:00
PROVIDERS: Nurse Practitioner Adult Health; ADMITTING PHYSICIAN Internal Medicine Cardiovascular Disease; EMERGENCY PHYSICIAN Emergency Medicine
PROC: 4A023N7 Measurement of Cardiac Sampling and Pressure, Left Heart, Percutaneous Approach (ICD-10-PCS; 2025-03-13)
PROC: B2111ZZ Fluoroscopy of Multiple Coronary Arteries using Low Osmolar Contrast (ICD-10-PCS; 2025-03-13)
PROC: 027034Z Dilation of Coronary Artery, One Artery with Drug-eluting Intraluminal Device, Percutaneous Approach (ICD-10-PCS; 2025-03-13)
PROC: B240ZZ3 Ultrasonography of Single Coronary Artery, Intravascular (ICD-10-PCS; 2025-03-13)
DX: I21.09 ST elevation (STEMI) myocardial infarction involving other coronary artery of anterior wall (principal); I47.29 Other ventricular tachycardia; R03.0 Elevated blood-pressure reading, without diagnosis of hypertension; R73.9 Hyperglycemia, unspecified; I25.10 Atherosclerotic heart disease of native coronary artery without angina pectoris; E78.1 Pure hyperglyceridemia; I25.5 Ischemic cardiomyopathy; I07.1 Rheumatic tricuspid insufficiency; Z59.71 Insufficient health insurance coverage
CPT/HCPCS: 80048; 80053; 80061; 83036; 83721; 84484; 85025; 85027; 85347; 85610; 92978; 93005; 93306; 93458; 99152; 99153; 99284; C1725; C1753; C1769; C1874; C1894; C9606; J1327; Q9967

== ENCOUNTER → 2025-05-12 10:44 | Outpatient (REF) | payer OTHER, SELFPAY ==
[2025-05-12 12:04] LABS: Hematocrit 43.5 % (39.0-52.0); Hemoglobin 14.9 g/dL (13.0-18.0); Mean Corp Hgb Conc. 34.3 g/dL (33.0-37.0); Mean Corpuscular Volume 88.6 fL (80.0-94.0); Nucleated Red Blood Cells % 0 % (-); Platelet Count 187 10^3/uL (130-400); Red Cell Dist. Width 12.8 % (11.5-14.5)
[2025-05-12 13:18] LABS: TSH 1.81 uIU/ml (0.47-4.68)
[2025-05-12 13:47] LABS: ALT (SGPT) 42 U/L (0-50); AST (SGOT) 26 U/L (17-59); Albumin 4.6 g/dl (3.5-5.0); Alkaline Phosphatase 77 U/L (38-126); Blood Urea Nitrogen 16 mg/dl (9-20); Calcium 9.3 mg/dl (8.4-10.2); Carbon Dioxide 27 mmol/L (22-30); Chloride 106 mmol/L (98-107); Glucose 96 mg/dl (70-99); HDL Cholesterol 36 mg/dl; Potassium 4.5 mmol/L (3.5-5.1); Sodium 140 mmol/L (135-145); Total Protein 7.7 g/dl (6.3-8.2); eGFR > 60.00
[2025-05-12 14:03] LABS: LDL Cholesterol, Calculated 95 mg/dl; Very Low Density Lipoprotein 174 mg/dl (0-30)
[2025-05-12 14:31] LABS: LDL Cholesterol, Direct 57 mg/dl
== END ==
LOC: CLINIC 10:44
PROVIDERS: ATTENDING PHYSICIAN Physician Assistant Medical
DX: Z23 Encounter for immunization (principal)
CPT/HCPCS: 36415; 80053; 80061; 83721; 84443; 85025